=== PATIENT | female | born 1960 | race Caucasian/White ===

== ENCOUNTER 2019-07-01 09:02 | Emergency (ER) | payer OTHER ==
--- NOTE | 2019-07-01 09:28 | ED Physician Documentation ---
History of Present Illness - Stated complaint Stated Complaint: MOUTH SORES/ITCHING/SORE ON BACK - Chief complaint Chief Complaint: General - Additonal information Additional information: This is a 58-year-old female with a history of hypertension, hyperlipidemia who presents with Itching and mouth pain. Patient returned to the from a trip to [facility]. She flew into [place] took a sailboat to [facility] and and stayed there for total of 3 weeks. She states that she had some bites from little no- seeums/black flies which are a little bit itchy, but since returning last night she states the rash/itching has gotten worse. She does take a statin and lisinopril, but she has been on these medications for a long time without any changes. She did not take any medications while she was there. She has tried Benadryl for relief and has been minimally effective. She also noticed some spots on her tongue and her mouth has some diffuse gingival discomfort. She denies vomiting or diarrhea, no chest pain or trouble breathing, no cough, no fever. She ate fish when she was there. Review of Systems Constitutional: denies: Fever Nose: denies: Rhinorrhea / runny nose Throat: reports: Oral lesions / sores Cardiac: denies: Chest pain / pressure Respiratory: denies: Dyspnea GI: denies: Abdominal Pain : denies: Dysuria Skin: reports: Rash PD PAST MEDICAL HISTORY - Past Medical History Cardiovascular: Hypertension, High cholesterol - Present Medications Home Medications: Ambulatory Orders Medication Instructions Recorded Confirmed Famotidine [Pepcid] 40 mg PO DAILY #14 tablet 07/01/19 Levothyroxine [Synthroid] 100 mcg PO QDAC 07/01/19 07/01/19 Lidocaine Viscous 2% [Xylocaine 5 ml MM TID PRN 4 Days #50 ml 07/01/19 Viscous 2%] Losartan Potassium 25 mg PO 07/01/19 Potassium Citrate [Potassium 10 meq PO 07/01/19 Citrate ER] Simvastatin [Zocor] 07/01/19 - Allergies Allergies/Adverse Reactions: Allergies Allergy/AdvReac Type Severity Reaction Status Date / Time codeine Allergy Emesis Verified 07/01/19 09:10 - Living Situation Living Arrangement: reports: 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 No bleeding from the gums, no other lesions seen. No blisters or ulcerations.) - Neck Neck: Supple, no meningeal sign - Cardiac Cardiac: RRR - Respiratory Respiratory: No respiratory distress, Clear bilaterally - Abdomen Abdomen: Soft, Non tender, Non distended - Derm Derm: Other (There is some erythema and excoriations over the arm There are scattered very small raised papules over the arm and back, no blisters, no areas of necrosis, no Open wounds or draining lesions.) - Extremities Extremities: No deformity - Neuro Neuro: Alert and oriented X 3 - Psych Psych: Normal mood, Normal affect Results - Vitals Vitals: Oxygen O2 Source Room air - Labs Labs: Laboratory Tests 07/01/19 07/01/19 09:39 09:39 WBC 9.2 RBC 4.45 Hgb 13.5 Hct 42.1 MCV 94.6 MCH 30.3 MCHC 32.1 RDW 15.0 Plt Count 293 MPV 11.5 H Neut # (Auto) 6.1 Lymph # (Auto) 1.7 Campbell # (Auto) 1.1 H Eos # (Auto) 0.1 Baso # (Auto) 0.1 Absolute Nucleated RBC 0.00 Nucleated RBC % 0.0 Sodium 139 Potassium 3.7 Chloride 101 Carbon Dioxide 27 Anion Gap 11.0 BUN 11 Creatinine 0.9 Estimated GFR (MDRD) 65 L Glucose 91 Calcium 10.0 Total Bilirubin 0.6 AST 25 ALT 20 Alkaline Phosphatase 88 C-Reactive Protein 1.7 H Total Protein 7.4 Albumin 4.3 Globulin 3.1 Albumin/Globulin Ratio 1.4 Lipase 42 PD MEDICAL DECISION MAKING - ED course Complexity details: considered differential (Allergic reaction, insect bite, urticaria, scombroid, food allergy, SJS, tropical infection, autoimmune process) ED course: Pt is non-toxic. She appears to have fairly typical small insect bites on her extremities. Her tongue has what appears to be 2 early aphthous ulcers. Mucous membranes are otherwise spared and she denies any vaginal symptoms. Labs are unremarkable other than slight 1.7 CRP elevation. The rash on her body is inconsistent with SJS or more serious disease process at this time- it is itchy, without painful lesions, blistering, necrosis, petechiae. Other than her mouth and skin she feels well and her labs are reassuring. Symptoms and onset are not typical for scombroid. I discussed that I am not sure what the exact cause of all of her symptoms is. I recommended anti-histamines, topical cortisone, viscous lidocaine for lesions on the tongue and close observation. With any worsening or new concerning symptoms she is to return to the ED. I specifically reviewed concerning symptoms with patient. She agrees and was discharged home. Departure - Departure Disposition: Home, Self Care Clinical Impression: Rash, Oral lesion Condition: Good Prescriptions: Famotidine [Pepcid] 40 mg PO DAILY #14 tablet Lidocaine Viscous 2% [Xylocaine Viscous 2%] 5 ml MM TID PRN 4 Days #50 ml PRN Reason: Pain Comments: You were seen today for itching as well as spots in your mouth. I am not sure the exact cause of your symptoms, though this may be related to insect bites. You may take the famotidine along with Benadryl for itching, you may also try topical Benadryl cream or hydrocortisone cream. If you are developing worsening lesions in your mouth, ulcerations or lesions on the vagina or the eyes, fever, or a rash that is blistering, or any other concerning symptoms, return to the emergency department as these can be signs of a more serious rash. Discharge Date/Time: 07/01/19 11:21
[2019-07-01 09:44] LABS: BASOPHILS # (AUTO) 0.1 10^3/uL (0.0-0.1); BASOPHILS % (AUTO) 0.7 %; EOSINOPHILS # (AUTO) 0.1 10^3/uL (0.0-0.7); EOSINOPHILS % (AUTO) 1.3 %; HGB - HEMOGLOBIN 13.5 g/dL (12.0-16.0); LYMPHOCYTES # (AUTO) 1.7 10^3/uL (1.5-3.5); MEAN CORPUSCULAR HEMOGLOBIN 30.3 pg (27.0-31.0); MEAN CORPUSCULAR HGB CONC 32.1 g/dL (32.0-36.0); MEAN CORPUSCULAR VOLUME 94.6 fL (81.0-99.0); MEAN PLATELET VOLUME 11.5 fL (7.9-10.8); MONOCYTES # (AUTO) 1.1 10^3/uL (0.0-1.0); MONOCYTES % (AUTO) 11.7 %; NEUTROPHILS # (AUTO) 6.1 10^3/uL (1.5-6.6); PLT - PLATELET COUNT 293 10^3/uL (130-450); RED BLOOD COUNT 4.45 10^6/uL (4.20-5.40); WHITE BLOOD COUNT 9.2 x10^3/uL (4.8-10.8)
[2019-07-01 10:07] LABS: ALBUMIN 4.3 g/dL (3.2-5.5); ALBUMIN/GLOBULIN RATIO 1.4 (1.0-2.2); BILIRUBIN,TOTAL 0.6 mg/dL (0.2-1.0); CREATININE 0.9 mg/dL (0.4-1.0); CRP - C-REACTIVE PROTEIN 1.7 mg/dL (0-1.0); TOTAL PROTEIN 7.4 g/dL (6.7-8.2)
[2019-07-01 11:13] VITALS: BP 158/96
== END 2019-07-01 11:21 | disposition home or self-care (01) ==
LOC: ED 09:02
DX: R21 Rash and other nonspecific skin eruption (principal); K13.79 Other lesions of oral mucosa; I10 Essential (primary) hypertension; E78.5 Hyperlipidemia, unspecified
CPT/HCPCS: 36415; 80053; 83690; 85025; 86140; 99283; 99284